=== PATIENT | female | born 1980 | race Caucasian/White ===

== ENCOUNTER 2018-11-29 10:34 | Emergency (ER) | payer MEDICAID ==
[~2018-11-29] VITALS: Ht 160 cm; Wt 81.8 kg
[2018-11-29 10:38] VITALS: Ht 160 cm; Wt 81.8 kg
[2018-11-29] MEDS ORDERED: AMOXICILLIN500 M1 PO (10:40)
[2018-11-29] MEDS ORDERED: VOLTAREN75 MG PO (12:17)
[2018-11-29 13:06] VITALS: BP 141/80
== END 2018-11-29 13:07 | disposition home or self-care (01) ==
LOC: D.ER 10:34
DX: K08.89 Other specified disorders of teeth and supporting structures (principal); K02.9 Dental caries, unspecified; F17.200 Nicotine dependence, unspecified, uncomplicated